=== PATIENT | female | born 1975 | race Two or more races ===

== ENCOUNTER 2017-02-04 21:22 | Emergency (ER) | payer SELFPAY ==
[2017-02-04] MEDS ORDERED: ASPIRIN 81 MG TABLET, CHEWABLE PO ONE (21:53)
[2017-02-04 22:15] LABS: ABSOLUTE EOSINOPHILS # (AUTO) 0.1 10^3/uL (0.0-0.6); ABSOLUTE LYMPHOCYTES (AUTO) 1.7 10^3/uL (0.5-4.7); ABSOLUTE MONOCYTES (AUTO) 0.5 10^3/uL (0.1-1.4); BASOPHILS % (AUTO) 0.5 % (0-2); EOSINOPHILS % (AUTO) 1.8 % (0-6); HEMATOCRIT 40.4 % (36.0-47.0); HEMOGLOBIN 13.9 g/dL (12.0-15.5); HGB HCT DIFFERENCE 1.3; LYMPHOCYTES % (AUTO) 27.1 % (13-45); MEAN CORPUSCULAR HEMOGLOBIN 30.1 pg (27.0-33.4); MEAN CORPUSCULAR HGB CONC 34.4 g/dL (32.0-36.0); MEAN CORPUSCULAR VOLUME 88 fl (80-97); MONOCYTES % (AUTO) 7.5 % (3-13); RED BLOOD COUNT 4.61 10^6/uL (3.72-5.28); SEGMENTED NEUTROPHILS % (AUTO) 63.1 % (42-78); WHITE BLOOD COUNT 6.3 10^3/uL (4.0-10.5)
[2017-02-04 22:24] LABS: PROTHROMBIN TIME 12.6 SEC (11.4-15.4)
[2017-02-04 22:36] LABS: ALANINE AMINOTRANSFERASE 44 U/L (9-52); ALBUMIN 4.1 g/dL (3.5-5.0); ALKALINE PHOSPHATASE 73 U/L (38-126); ANION GAP 12 (5-19); ASPARTATE AMINO TRANSFERASE 26 U/L (14-36); BILIRUBIN,TOTAL 0.6 mg/dL (0.2-1.3); BLOOD UREA NITROGEN 12 mg/dL (7-20); CALCIUM 9.7 mg/dL (8.4-10.2); CARBON DIOXIDE 23 mmol/L (22-30); CHLORIDE 107 mmol/L (98-107); CREATINE KINASE 71 U/L (30-135); CREATININE RESULT 0.65 mg/dL (0.52-1.25); GLUCOSE 167 mg/dL (75-110); POTASSIUM 3.4 mmol/L (3.6-5.0); SODIUM 141.9 mmol/L (137-145); TOTAL PROTEIN 7.1 g/dL (6.3-8.2)
--- NOTE | 2017-02-04 22:38 | ER Document Report ---
ED General <KERI MORENO - Last Filed: 02/05/17 00:41> - General Time seen by provider: 22:30 Mode of Arrival: Medic Information source: Patient, Relative - daughter (translated for patient who speaks Bulgarian) TRAVEL OUTSIDE OF THE [place] IN LAST 30 DAYS: No - HPI Onset: Other - see HPI note Associated symptoms: Chest pain, Chills, Diarrhea, Sweating <MARISSA JOYCE - Last Filed: 02/05/17 01:02> - General Chief Complaint: Chest Pain Stated Complaint: CHEST PAIN Notes: Patient is a 41 year old Bulgarian speaking female presenting to the emergency department for multiple complaints. Patient speaks Bulgarian but can understand Venezuelan; patient's daughter aids in translation for the patient. Patient was asked if she would like an telegraph lineman and states that she understands everything but just cannot speak Venezuelan that well; she feels comfortable using her daughter to translate. Patient has some chest pain with palpitations that she has had for the past 4 years. Patient states this time she felt like her heart was "shaking." Patient has not been evaluated for this by a laboratory mechanic helper. Patient also states that she has some left upper quadrant abdominal pain that starts after she eats and radiates around into her back. Patient states that she had an appendectomy 2 months ago and the flu 3 weeks before her appendectomy surgery. Patient states she also was told that she has a enlarged right kidney and that she possibly needs to have a cholecystectomy due to a possible gallstone obstruction. Patient has not had this done because of her recent appendectomy and the surgeon wants to give her time to heal before another surgery. Patient has had this left upper quadrant pain for the past 8 days. Patient saw her PCP on Tuesday for this pain and a CT scan was ordered; patient had this scan completed today at [facility]. Patient complains of having diarrhea since her appendectomy. Patient also got a UTI after her surgery. Patient does not complain of any current chest pain or palpitations at time of exam. Patient has a history of hypertension, diabetes mellitus, hypercholesterolemia, and GERD. Patient has no known allergies. (MARISSA JOYCE) - Related Data Allergies/Adverse Reactions: No Known Allergies Allergy (Verified 02/05/17 00:44) Past Medical History - General Information source: Patient, Relative - daughter (translates for patient who speaks Bulgarian) - Social History Smoking Status: Never Smoker Cigarette use (# per day): No Chew tobacco use (# tins/day): No Frequency of alcohol use: None Drug Abuse: None Lives with: Family, Spouse/Significant other Family History: None - Past Medical History Cardiac Medical History: Reports: Hx Hypercholesterolemia, Hx Hypertension Endocrine Medical History: Reports: Hx Diabetes Mellitus Type 2 GI Medical History: Reports: Hx Ulcer <MARISSA JOYCE - Last Filed: 02/05/17 01:02> Review of Systems - Review of Systems Constitutional: See HPI, Chills, Diaphoresis EENT: No symptoms reported Cardiovascular: See HPI, Chest pain, Palpitations Respiratory: No symptoms reported Gastrointestinal: See HPI, Abdominal pain, Diarrhea, Nausea, Poor appetite Genitourinary: No symptoms reported Female Genitourinary: No symptoms reported Musculoskeletal: No symptoms reported Skin: No symptoms reported Hematologic/Lymphatic: No symptoms reported Neurological/Psychological: No symptoms reported -: Yes All other systems reviewed and negative <MARISSA JOYCE - Last Filed: 02/05/17 01:02> Physical Exam - Vital signs Interpretation: Normal - General General appearance: Alert, Other - appears uncomfortable In distress: Mild - HEENT Head: Normocephalic, Atraumatic Eyes: Normal Pupils: PERRL Mucous membranes: Moist - Respiratory Respiratory status: No respiratory distress Chest status: Nontender Breath sounds: Normal Chest palpation: Normal - Cardiovascular Rhythm: Regular Heart sounds: Normal auscultation Murmur: No - Abdominal Inspection: Normal Distension: No distension Bowel sounds: Normal Tenderness: Nontender Organomegaly: No organomegaly - Back Back: Normal, Nontender - Extremities General upper extremity: Normal inspection, Normal ROM, Normal strength General lower extremity: Normal inspection, Normal ROM, Normal strength - Neurological Neuro grossly intact: Yes Cognition: Normal Orientation: AAOx4 [place] Coma Scale Eye Opening: Spontaneous Karly Coma Scale Verbal: Oriented [place] Coma Scale Motor: Obeys Commands [place] Coma Scale Total: 15 Speech: Normal - Psychological Associated symptoms: Normal affect, Normal mood - Skin Skin Temperature: Warm Skin Moisture: Dry <MARISSA JOYCE - Last Filed: 02/05/17 01:02> - Vital signs Vitals: Temp Resp 99.1 F 21 H 02/04/17 21:34 02/04/17 21:34 Course - Laboratory Result Diagrams: 02/04/17 22:05 02/04/17 22:05 <KERI MORENO - Last Filed: 02/05/17 00:41> - Laboratory Result Diagrams: 02/04/17 22:05 02/04/17 22:05 <MARISSA JOYCE - Last Filed: 02/05/17 01:02> - Re-evaluation Re-evalutation: 02/04/17 22:45 02/04/17 22:50 41 year-old female with diabetes, gastric reflux and h/o palpitatoins, presents complaining of left upper quadrant pain with intermittent chest pain palpitations. Patient reports on arrival in the ED the chest pain palpitations are resolved. She continues to have left upper quadrant abdominal pain and swelling. She had a CT abdomen and pelvis as an outpatient yesterday ordered by her primary physician but does not know the results. Patient does have gallbladder disease and was suppposed to have a cholecystectomy however she had an emergency appendectomy which put that off. The patient reports that since the appendectomy she's had problems with urinary tract infection, diarrhea and now this left upper quadrant abdominal pain. The chest pain palpitations have been intermittent and ongoing for the last 4 years. She says that they normally just go away and she's never had them evaluated. Tonight they did not go away right away so she called the rescue squad. The patient has not had vomiting. She does take Prevacid for her gastric reflux. She does report subjective fevers for the last week but only at night. On exam, patient alert and oriented no acute chest vitals are stable patient is afebrile nontoxic appearing. Patient 's exam is unremarkable. Plan will be to initiate abdominal pain workup. We also checked EKG/CXR for her recurrent palpitation symptoms. EKG unremarkable. 02/04/17 22:52 02/05/17 00:45 Patient's workup is unremarkable. She is afebrile and nontoxic appearing. She has an unremarkable abdominal exam. She is hemodynamically stable. She has multiple concerns and asked me if she has anemia aspect be why she is so fatigued all the time. Patient's presentation is been primarily for ongoing complaints. I have discussed all of these issues with the patient and her daughter with her in the room. She reportedly has had Holter testing before for the chest pain/palpitations. Her physician is aware of these intermittent symptoms. She cut out caffeine about 3 months ago to try to resolve the problem. Regarding the abdomen, her exam was unremarkable today and I did not feel that advanced imaging was warranted. She did have a CT yesterday and she will follow-up the primary physician regarding the results of that. I have encouraged her follow up with her PCP for these ongoing issues. The patient acknowledges understanding and agrees with the plan. 02/05/17 00:54 (KERI MORENO) - Vital Signs Vital signs: Temp Pulse Resp BP Pulse Ox 99.1 F 20 114/78 97 02/04/17 21:34 02/05/17 00:01 02/05/17 00:00 02/05/17 00:01 - Laboratory Laboratory results interpreted by me: 02/04/17 22:05 Potassium 3.4 L Glucose 167 H - EKG Interpretation by Me Additional EKG results interpreted by me: 02/04/17 22:49 Heart rate 95, sinus rhythm, normal axis, normal intervals, no ST elevations, as interpreted by me. Compared with EKG of 04/12/14, no significant change. ( KERI MORENO) Discharge <KERI MORENO - Last Filed: 02/05/17 00:41> <MARISSA JOYCE - Last Filed: 02/05/17 01:02> - Discharge Clinical Impression: Palpitations Abdominal pain Qualifiers: Abdominal location: left upper quadrant Qualified Code(s): R10.12 - Left upper quadrant pain Chest pain Qualifiers: Chest pain type: other chest pain Qualified Code(s): R07.89 - Other chest pain Condition: Stable Disposition: HOME, SELF-CARE Instructions: Chest Pain of Unclear Cause ([facility]), Abdominal Pain ([facility]), Reflux Disease (GERD) ([facility]), Palpitations (Irregular or Rapid Heartrate) ([facility]) Additional Instructions: It is important that you continue follow-up with your primary physician for your ongoing issues with palpitations and abdominal pain. Return for fever greater than 100.3, difficulty breathing, recurrent/persistent chest pain, vomiting so not to keep down fluids, worsening abdominal pain, or other concerning symptoms. Print Language: Eren Pabon Attestation: 02/05/17 00:44 I personally performed the services described in the documentation, reviewed and edited the documentation which was dictated to the scribe in my presence, and it accurately records my words and actions. (KERI MORENO) Scribe Documentation - Scribe Written by Scribe:: Marissa Joyce 02/04/17 23:30 acting as scribe for :: Conklin <MARISSA JOYCE - Last Filed: 02/05/17 01:02>
[2017-02-04 22:45] LABS: ADD ON TESTING BLD IN LAB ACKNOWLEDGE
[2017-02-04 22:55] LABS: CREATINE KINASE MB < 0.22 ng/mL (<4.55); TROPONIN I < 0.012 ng/mL
[2017-02-05] MEDS ORDERED: NORMAL SALINE 1000 ML 1,000 ML IV ONE (00:32)
[2017-02-05 01:06] VITALS: BP 111/76
--- NOTE | 2017-02-05 16:08 | EKG REPORT ---
SEVERITY:- BORDERLINE ECG - SINUS RHYTHM BORDERLINE T WAVE ABNORMALITIES : Confirmed by: Sosa Morales MD 05-Feb-2017 16:08:06
== END 2017-02-05 01:14 | disposition home or self-care (01) ==
LOC: ER 21:22
DX: R07.9 Chest pain, unspecified (principal); R00.2 Palpitations; R68.83 Chills (without fever); R61 Generalized hyperhidrosis; R53.83 Other fatigue; R19.7 Diarrhea, unspecified; K21.9 Gastro-esophageal reflux disease without esophagitis; K82.9 Disease of gallbladder, unspecified; R19.02 Left upper quadrant abdominal swelling, mass and lump; R10.12 Left upper quadrant pain; R11.0 Nausea; E11.9 Type 2 diabetes mellitus without complications; I10 Essential (primary) hypertension; Z90.49 Acquired absence of other specified parts of digestive tract; Z87.440 Personal history of urinary (tract) infections; Z79.899 Other long term (current) drug therapy
CPT/HCPCS: 93005; 99285; 36415; 82553; 82550; 83690; 85025; 85610; 80053; 84484; 71010; 93010; J7030

== ENCOUNTER 2017-03-23 08:22 | Day surgery (SDC) | payer SELFPAY ==
[~2017-03-23 08:22] MED LIST: DIPHENHYDRAMINE HCL 50 MG/ML VIAL ONE; EPINEPHRINE INJ 1 MG/10 ML DISP.SYRIN ONE; FLUMAZENIL INJ 0.5 MG/5 ML VIAL IV ONE; GLUCAGON,HUMAN RECOMB 1 MG INJ ONE; NALOXONE HCL INJ/PF 0.4 MG/1 ML SDV ONE; ONDANSETRON HCL INJ/PF 4 MG/2 ML SDV ONE
[2017-03-23] MEDS: MIDAZOLAM 2 MG/2 ML INJ ONE ×2 (08:50→08:54)
[2017-03-23] MEDS: FENTANYL CITRATE INJ/PF 100 MCG/2 ML AMPUL ONE ×2 (08:52→08:58)
--- NOTE | 2017-03-23 09:10 | Operative Report ---
Operative Report DATE OF SURGERY: 03/23/17 Operative Report: The risks benefits and alternatives of the procedure explained to the patient in detail and informed consent is obtained that GIF Olympus video scope was inserted into the patient's mouth and hypopharynx the esophagus is identified intubated and insufflated the scope was then advanced through the esophagus stomach and duodenum retroflexion maneuver is done the esophagus stomach and first and second portions of the duodenum examined PREOPERATIVE DIAGNOSIS: Gastroesophageal reflux disease. Hiatal hernia POSTOPERATIVE DIAGNOSIS: Gastritis, nodular status post biopsy rule out Helicobacter pylori OPERATION: EGD with biopsy SURGEON: ROSALIA CELAYA ANESTHESIA: Moderate Sedation - 4 mg of Versed, 100 g of fentanyl. Conscious sedation monitoring time 30 minutes. TISSUE REMOVED OR ALTERED: Gastric specimens obtained. COMPLICATIONS: None. ESTIMATED BLOOD LOSS: none. INTRAOPERATIVE FINDINGS: Nodular gastritis PROCEDURE: Patient tolerated the procedure well. No immediate postprocedure complications are noted. Patient discharged in good condition. Discharge date 03/23/2017. Discharge diet: Regular. Discharge activity: Regular. 2-3 week follow-up to discuss findings. Patient is instructed to call the office should there be any further problems or questions. We'll await on biopsies.
[2017-03-23 10:22] VITALS: BP 111/73
== END 2017-03-23 10:15 | disposition home or self-care (01) ==
LOC: END 08:22
PROVIDERS: ATTEND Internal Medicine Gastroenterology
PROC: 0DB68ZX Excision of Stomach, Via Natural or Artificial Opening Endoscopic, Diagnostic (ICD-10-PCS; principal; 2017-03-23 08:30)
DX: K21.9 Gastro-esophageal reflux disease without esophagitis (principal); K29.50 Unspecified chronic gastritis without bleeding; K44.9 Diaphragmatic hernia without obstruction or gangrene; E11.9 Type 2 diabetes mellitus without complications; E78.5 Hyperlipidemia, unspecified; E66.9 Obesity, unspecified; E55.9 Vitamin D deficiency, unspecified; K86.1 Other chronic pancreatitis; Z79.899 Other long term (current) drug therapy; Z79.1 Long term (current) use of non-steroidal anti-inflammatories (NSAID); Z79.84 Long term (current) use of oral hypoglycemic drugs; Z68.36 Body mass index [BMI] 36.0-36.9, adult
CPT/HCPCS: 43239; 82962; 88305 ×2; 88311; J2250; J3010; J0171; J1200; J1610; J2310; J2405; J3490

== ENCOUNTER 2017-05-02 00:15 | Inpatient (IN) | payer SELFPAY ==
[2017-05-02] MEDS ORDERED: ASPIRIN 81 MG TABLET, CHEWABLE PO ONE (00:21)
[2017-05-02 00:37] LABS: ABSOLUTE EOSINOPHILS # (AUTO) 0.1 10^3/uL (0.0-0.6); ABSOLUTE LYMPHOCYTES (AUTO) 1.4 10^3/uL (0.5-4.7); ABSOLUTE MONOCYTES (AUTO) 0.7 10^3/uL (0.1-1.4); ABSOLUTE NEUT (AUTO) 6.1 10^3/uL (1.7-8.2); BASOPHILS % (AUTO) 0.5 % (0-2); EOSINOPHILS % (AUTO) 1.3 % (0-6); HEMATOCRIT 40.3 % (36.0-47.0); HEMOGLOBIN 13.7 g/dL (12.0-15.5); HGB HCT DIFFERENCE 0.8; LYMPHOCYTES % (AUTO) 16.9 % (13-45); MEAN CORPUSCULAR HEMOGLOBIN 30.4 pg (27.0-33.4); MEAN CORPUSCULAR HGB CONC 33.9 g/dL (32.0-36.0); MEAN CORPUSCULAR VOLUME 90 fl (80-97); MONOCYTES % (AUTO) 7.8 % (3-13); RED BLOOD COUNT 4.49 10^6/uL (3.72-5.28); RED CELL DISTRIBUTION WIDTH 13.1 % (11.5-14.0); SEGMENTED NEUTROPHILS % (AUTO) 73.5 % (42-78); WHITE BLOOD COUNT 8.4 10^3/uL (4.0-10.5)
[2017-05-02 01:06] LABS: CREATINE KINASE MB 1.24 ng/mL (<4.55)
[2017-05-02] MEDS ORDERED: MORPHINE SULFATE 10 MG/ML INJ IV ONE (01:09)
[2017-05-02] MEDS ORDERED: NORMAL SALINE 1000 ML 1,000 ML IV ONE (01:10)
[2017-05-02] MEDS ORDERED: ONDANSETRON HCL INJ/PF 4 MG/2 ML SDV IV ONE (01:10)
[2017-05-02 01:11] LABS: ALANINE AMINOTRANSFERASE 29 U/L (9-52); ALBUMIN 4.1 g/dL (3.5-5.0); ALKALINE PHOSPHATASE 62 U/L (38-126); ANION GAP 12 (5-19); ASPARTATE AMINO TRANSFERASE 53 U/L (14-36); BILIRUBIN,DIRECT 0.3 mg/dL (0.0-0.4); BILIRUBIN,TOTAL 0.6 mg/dL (0.2-1.3); BLOOD UREA NITROGEN 13 mg/dL (7-20); CALCIUM 9.3 mg/dL (8.4-10.2); CARBON DIOXIDE 21 mmol/L (22-30); CHLORIDE 106 mmol/L (98-107); CREATINE KINASE 93 U/L (30-135); CREATININE RESULT 0.65 mg/dL (0.52-1.25); GLUCOSE 159 mg/dL (75-110); POTASSIUM 3.6 mmol/L (3.6-5.0); SODIUM 139.4 mmol/L (137-145); TOTAL PROTEIN 7.5 g/dL (6.3-8.2)
[2017-05-02 01:12] LABS: TROPONIN I < 0.012 ng/mL
--- NOTE | 2017-05-02 01:12 | ER Document Report ---
ED GI/ - General Chief Complaint: Abdominal Pain Stated Complaint: ABDOMINAL PAIN Time Seen by Provider: 05/02/17 01:03 Notes: Patient is a 41-year-old female who comes emergency department for chief complaint of abdominal pain, symptoms started 1 week ago, patient has had progressively worsening symptoms and now is having pain that radiates from the mid to right upper abdomen through to her back. Symptoms are worse with eating , she states afterwards she has increased pain and belching. She denies vomiting, had a normal bowel movement earlier today, she denies fever. She denies any alcohol use. She has had an appendectomy, past medical history of type 2 diabetes, hyperlipidemia, hypertension. TRAVEL OUTSIDE OF THE [place] IN LAST 30 DAYS: No - Related Data Allergies/Adverse Reactions: No Known Allergies Allergy (Verified 03/23/17 08:35) Past Medical History - General Information source: Patient - Social History Smoking Status: Never Smoker Frequency of alcohol use: None Drug Abuse: None Lives with: Family Family History: None - Past Medical History Cardiac Medical History: Reports: Hx Hypercholesterolemia, Hx Hypertension Denies: Hx Coronary Artery Disease, Hx Heart Attack Pulmonary Medical History: Reports: Hx Pneumonia - 10yrs ago Denies: Hx Asthma, Hx Bronchitis, Hx COPD Neurological Medical History: Denies: Hx Cerebrovascular Accident, Hx Seizures Endocrine Medical History: Reports: Hx Diabetes Mellitus Type 2 GI Medical History: Reports: Hx Ulcer Musculoskeltal Medical History: Reports Hx Arthritis Surgical Hx: Negative Past Surgical History: Denies: Hx Hysterectomy - Immunizations Hx Diphtheria, Pertussis, Tetanus Vaccination: No Hx Pneumococcal Vaccination: 08/21/13 Review of Systems - Review of Systems Constitutional: No symptoms reported EENT: No symptoms reported Cardiovascular: See HPI Respiratory: See HPI Gastrointestinal: See HPI Genitourinary: No symptoms reported Female Genitourinary: No symptoms reported Musculoskeletal: No symptoms reported Skin: No symptoms reported Hematologic/Lymphatic: No symptoms reported Neurological/Psychological: No symptoms reported Physical Exam - Vital signs Vitals: Pulse Ox 100 05/02/17 00:22 Interpretation: Normal - General General appearance: Alert, Anxious In distress: Mild - patient appears to be in pain but is not in severe distress - HEENT Head: Normocephalic, Atraumatic Eyes: Normal Pupils: PERRL - Respiratory Respiratory status: No respiratory distress Chest status: Nontender Breath sounds: Normal. No: Decreased air movement, Wheezing Chest palpation: Normal - Cardiovascular Rhythm: Regular. No: Tachycardia Heart sounds: Normal auscultation, S1 appreciated, S2 appreciated Murmur: No - Abdominal Inspection: Normal Distension: No distension Bowel sounds: Normal Tenderness: Tender, McBurney's point, Guarding - Back Back: Normal, Nontender. No: Tender, CVA tenderness - Extremities General upper extremity: Normal inspection, Nontender, Normal color, Normal ROM , Normal temperature General lower extremity: Normal inspection, Nontender, Normal color, Normal ROM , Normal temperature, Normal weight bearing. No: Lonny's sign - Neurological Neuro grossly intact: Yes Cognition: Normal Orientation: AAOx4 [place] Coma Scale Eye Opening: Spontaneous Karly Coma Scale Verbal: Oriented [place] Coma Scale Motor: Obeys Commands Karly Coma Scale Total: 15 Speech: Normal Motor strength normal: LUE, RUE, LLE, RLE Sensory: Normal - Psychological Associated symptoms: Anxious - Skin Skin Temperature: Warm Skin Moisture: Dry Skin Color: Normal Course - Re-evaluation Re-evalutation: Patient was guarding in the right upper quadrant and tenderness in the epigastric area, CBC normal, lipase normal, LFTs and bilirubin are normal, alk phos is normal. Patient was initially stating that she had chest pain although her pain is abdominal, as a result chest pain protocol had been initiated, unremarkable workup. Ultrasound showing cholelithiasis without evidence of cholecystitis. Patient had good relief with medication, however because of ongoing symptoms which are worsening and now inability to eat patient is very agreeable with having surgical evaluation and requests this specifically. Patient will be kept n.p.o. pending evaluation. 05/02/17 06:19 Spoke with Surgery transmissions systems operator, Dr. Murillo, he will evaluate the patient at bedside. 05/02/17 06:23 Dr. Murillo reports patient will be admitted for surgery, patient to be covered with Unasyn and kept NPO. - Vital Signs Vital signs: Temp Pulse Resp BP Pulse Ox 18 119/79 98 05/02/17 05:01 05/02/17 05:01 05/02/17 05:01 - Laboratory Result Diagrams: 05/02/17 00:25 05/02/17 00:25 Laboratory results interpreted by me: 05/02/17 00:25 Carbon Dioxide 21 L Glucose 159 H AST 53 H Discharge - Discharge Clinical Impression: Right upper quadrant abdominal pain Cholelithiasis Qualifiers: Cholelithiasis location: gallbladder Cholecystitis presence: without cholecystitis Biliary obstruction: without biliary obstruction Qualified Code(s) : K80.20 - Calculus of gallbladder without cholecystitis without obstruction Condition: Stable Disposition: ADMITTED INPATIENT Admitting Provider: Surgicalist Unit Admitted: Surgical Floor
--- NOTE | 2017-05-02 02:43 | RADIOLOGY REPORT (SQ) ---
EXAM DESCRIPTION: U/S ABDOMEN LIMITED W/O DOP COMPLETED DATE/TIME: 05/02/2017 2:19 am REASON FOR STUDY: RUQ and epigastric pain COMPARISON: None. TECHNIQUE: Dynamic and static grayscale images acquired of the abdomen and recorded on PACS. Additio nal selected color Doppler and spectral images recorded. LIMITATIONS: Bowel gas artifact and body habitus. FINDINGS: PANCREAS: Obscured. LIVER: No masses. Echotexture normal. LIVER VASCULATURE: Normal directional flow of the main portal vein and hepatic veins. GALLBLADDER: Several Gallstone(s). No pericholecystic fluid. No wall thickening. ULTRASOUND-DETECTED MACHADO'S SIGN: Negative. INTRAHEPATIC DUCTS AND COMMON DUCT: 0.5 cm. CBD and intrahepatic ducts normal caliber. No filling de fects. INFERIOR VENA CAVA: Normal flow. AORTA: No aneurysm. RIGHT KIDNEY: Normal size. Normal echogenicity. No solid or suspicious masses. No hydronephrosis. No calcifications. PERITONEAL AND RIGHT PLEURAL SPACE: No ascites or effusions. OTHER: No other significant findings. IMPRESSION: Cholelithiasis. TECHNICAL DOCUMENTATION: JOB ID: [id number] [employer]- All Rights Reserved
[2017-05-02] MEDS: NORMAL SALINE 1000 ML 1,000 ML IV PRN ×2 (05:05→17:10)
[2017-05-02] MEDS ORDERED: AMPICILLIN SOD/SULBACTAM 3 GM VIAL IV ONE (06:24)
--- NOTE | 2017-05-02 08:24 | HISTORY AND PHYSICAL E ---
History and Physical NAME: CARRIE GIRON : 1975 AGE: 41Y ADMITTED: 05/02/2017 ROOM: ED14 CHIEF COMPLAINT: Abdominal pains. HISTORY OF PRESENT ILLNESS: This is a 41-year-old female who has been complaining of abdominal pains following fatty meals for the past few months. She has been having more abdominal pains and nausea over the past 10 days and worse yesterday, and brought her to the Emergency Room. Ultrasound of the gallbladder revealed gallstones, but no pericholecystic fluid. She denies any vomiting. She had a normal bowel movement earlier today. Denies any fever. Denies any alcohol use. She had a laparoscopic appendectomy in November of this year. Part of her past history of type 2 diabetes, hyperlipidemia and hypertension. ALLERGIES: None known. PAST MEDICAL HISTORY: 1. Diabetes. 2. Hypertension. 3. Hyperlipidemia. 4. She was also diagnosed with H. pylori by Dr. Noble about a month ago and completed antibiotic therapy. SOCIAL HISTORY: Denies smoking and no drinking alcohol use. REVIEW OF SYSTEMS: As in HPI. Constitutional: No symptoms reported. ENT: No symptoms reported. Cardiovascular: Some pains radiating to the back, but no definite chest pains. No shortness of breath. Genitourinary: No dysuria. Female genitalia: No vaginal discharge. Musculoskeletal: No joint pains. Skin: No symptoms reported. Hematologic/lymphatic: No symptoms reported. Urological/Psychological: No symptoms reported. PHYSICAL EXAMINATION: GENERAL: This is a 41-year-old female, alert and oriented, complaining of right upper quadrant pains. HEENT: Neck is supple, without thyromegaly. LUNGS: Clear. HEART: Regular sinus rhythm. ABDOMEN: Soft with tenderness in the right upper quadrant. EXTREMITIES: No edema. IMPRESSION: Cholelithiasis with possible acute cholecystitis. PLAN: Keep NPO, possible laparoscopic cholecystectomy today. DICTATING PHYSICIAN: CASEY RAM M.D. [id number] PHY#: [id number] ID: [id number] JOB#: [id number] ACCT: [id number] cc:NO Jeff CANALES
--- NOTE | 2017-05-02 09:41 | EKG REPORT ---
SEVERITY:- NORMAL ECG - SINUS RHYTHM : Confirmed by: Pallavi French 02-May-2017 09:40:22
[2017-05-02] MEDS ORDERED: NEOSTIGMINE METHYLSULFATE 10 MG/10 ML VIAL ONE (09:49)
[2017-05-02] MEDS ORDERED: SUCCINYLCHOLINE CHLORIDE INJ 200 MG/10 ML VIAL ONE (09:49)
[2017-05-02] MEDS ORDERED: ONDANSETRON HCL INJ/PF 4 MG/2 ML SDV ONE ×3 (09:49→17:08)
[2017-05-02] MEDS ORDERED: LIDOCAINE 2% INJ-PF (20 MG/ML) 10 ML AMPUL ONE (09:49)
[2017-05-02] MEDS ORDERED: ROCURONIUM BROMIDE INJ 50 MG/5 ML VIAL IV ONE (09:49)
[2017-05-02] MEDS ORDERED: GLYCOPYRROLATE INJ 0.4 MG/2 ML VIAL ONE (09:49)
[2017-05-02] MEDS ORDERED: METOCLOPRAMIDE HCL INJ/PF 10 MG/2 ML SDV ONE (09:49)
[2017-05-02] MEDS ORDERED: FENTANYL CITRATE INJ/PF 250 MCG/5 ML AMPULE ONE ×2 (10:58)
[2017-05-02] MEDS ORDERED: ACETAMINOPHEN 100 ML IV ONE (10:59)
[2017-05-02] MEDS ORDERED: MORPHINE SULFATE 10 MG/ML INJ ONE (10:59)
[2017-05-02] MEDS ORDERED: MIDAZOLAM 2 MG/2 ML INJ ONE (10:59)
[2017-05-02] MEDS ORDERED: PROPOFOL INJ 200 MG/20 ML VIAL IV ONE (10:59)
[2017-05-02] MEDS ORDERED: BUPIVACAINE HCL 0.25 % INJ/PF (2.5 MG/1 ML) 30 ML VIAL ONE (11:32)
--- NOTE | 2017-05-02 12:34 | Operative Report ---
Operative Report DATE OF SURGERY: 05/02/17 PREOPERATIVE DIAGNOSIS: Acute cholecystitis cholelithiasis POSTOPERATIVE DIAGNOSIS: same OPERATION: Laparoscopic cholecystectomy SURGEON: PATRICK ROD ANESTHESIA: GA TISSUE REMOVED OR ALTERED: gall bladder with stones COMPLICATIONS: None ESTIMATED BLOOD LOSS: 45 cc INTRAOPERATIVE FINDINGS: See below PROCEDURE: Patient was brought in the preop holding area the main operating room and general anesthesia was induced. Arms abducted, abdomen exposed, prepped and draped in a sterile fashion. Surgical plan surgical timeout were conducted. The patient had previous laparoscopic appendectomy. A supraumbilical incision was made at the previous scar site with a 9 Veress needle inserted peritoneal cavity, pneumoperitoneum was established. The Veress needle was removed, and a 5 mm port was inserted into the peritoneal cavity and a 5 mm flexible scope was inserted. Under direct visualization 3 additional ports were placed one in the subxiphoid and 2 in the subcostal position. Findings were significant for adhesions between the gallbladder and the gastroduodenal region. These were taken down using a combination of blunt and electrocautery dissection. Grasper placed on the gallbladder fundus and infundibulum. The neck of the gallbladder its junction with the cystic duct was now dissected out. The cystic artery was not in its usual location, specifically it was more lateral and deep. The triangle of Calot was opened widely. We obtained the critical view, and photos were taken. Prior to addressing the cystic duct, however, we did place some clips on a branch point of the cystic artery and used cautery distally to free the undersurface of the gallbladder from these vessels. We now the gallbladder suspended from the cystic duct and the fundus. The cystic duct was now clipped twice proximally once distally and then divided with scissors after photographing the target tissue. The gallbladder was removed from the liver bed using hook cautery dissection. Specimen was out of the patient the supraumbilical port site incision with some stretching of the fascia without spillage of stones. The specimen was sent to pathology for permanent analysis We returned the peritoneal cavity, with excellent exposure of the after mentioned clips, we interrogated an area of bleeding coming from the cystic artery which had been previously clipped at several locations as it abutted the undersurface of the liver. We had excellent visualization and we were able to gently use a little cautery applied via hook to control this onerous bleeding. Placed 2 strips of Surgicel in the area and at this point felt the mechanical bleeding was completely controlled. We checked the viscera and they were in good condition. We felt the operation was complete. Sponge and needle counts correct. All ports removed under direct visualization, pneumoperitoneum evacuated, wounds closed with 3 oh, 0, benzoin Steri-Strips patient tolerated procedure well, extubated, taken recovery in stable condition.
[2017-05-02] MEDS ORDERED: ONDANSETRON HCL INJ/PF 4 MG/2 ML SDV IV PRN (16:55)
[2017-05-02] MEDS: OXYCODONE-ACETAMINOPHEN 5-325 MG TABLET PO PRN (20:37)
[2017-05-03] MEDS: OXYCODONE-ACETAMINOPHEN 5-325 MG TABLET PO PRN ×2 (02:06→07:33)
--- NOTE | 2017-05-03 08:03 | DISCHARGE SUMMARY E ---
Discharge Summary NAME: CARRIE MILAN : 1975 AGE: 41Y ADMITTED: 05/02/2017 DISCHARGED: 05/03/2017 FINAL DIAGNOSES: 1. Cholelithiasis. 2. Acute cholecystitis. PROCEDURE DONE: On 05/02/2017, laparoscopic cholecystectomy, surgeon Dr. Leblanc. SUMMARY: This is a 41-year-old female complaining of right upper quadrant pains of a few days' duration. She was noted to have gallstones and evidence of acute cholecystitis on ultrasound. She then underwent laparoscopic cholecystectomy on 05/02/[address] Leblanc. On 05/03/2017, she is doing very well and discharged improved on the same day. Prescription for Percocet was given to take 1 every 6 hours as needed for pain. She can have regular diet and avoid heavy lifting for more than 15 pounds for the next week, then gradually resume regular activity. A note was given for her to go back to work in about 2 weeks on 05/17/2017. She will be seen in the Surgical [facility] next week. DICTATING PHYSICIAN: CASEY RAM M.D. [id number] PHY#: [id number] ID: [id number] JOB#: [id number] ACCT: [id number] cc:Ulises FRYE PA >
[2017-05-03 08:31] VITALS: BP 128/79
== END 2017-05-03 09:17 | disposition home or self-care (01) | DRG 419 ==
LOC: ER 00:15 → EH 06:32 → UNDOADMIN 06:32 → EH 09:10 → 4S 13:57
PROVIDERS: ADMIT Surgery; ATTEND Surgery
PROC: 0FT44ZZ Resection of Gallbladder, Percutaneous Endoscopic Approach (ICD-10-PCS; principal; 2017-05-02 09:45)
DX: K80.12 Calculus of gallbladder with acute and chronic cholecystitis without obstruction (principal); E11.9 Type 2 diabetes mellitus without complications; E78.5 Hyperlipidemia, unspecified; I10 Essential (primary) hypertension; M19.90 Unspecified osteoarthritis, unspecified site; Z90.710 Acquired absence of both cervix and uterus
CPT/HCPCS: 36415; 76705; 790; 80053; 82550; 82553; 83690; 84484; 84703; 85025; 88304; 93005; 93010; 96361; 96374; 96375; 99285; J0131; J0295; J0330; J2250; J2270; J2405; J2704; J2765; J3010; J3490; J7030

== ENCOUNTER 2020-02-17 19:58 | Emergency (ER) | payer SELFPAY ==
--- NOTE | 2020-02-17 20:15 | ER Document Report ---
ED Medical Screen (RME) - General Chief Complaint: Vaginal Bleeding Stated Complaint: VAGINAL BLEEDING/10W4D PREG Time Seen by Provider: 02/17/20 20:11 Mode of Arrival: Ambulatory Information source: Patient Notes: Patient presents with vaginal bleeding that started today with lower pelvic pain. Patient also reports low back pain. Patient complains of urinary frequency with occasional dysuria. Patient is currently 9 weeks 4 days G8, P7. Patient's blood type is O+ after review of previous delivery here at [facility]. I have greeted and performed a rapid initial assessment of this patient. A comprehensive ED assessment and evaluation of the patient, analysis of test results and completion of the medical decision making process will be conducted by additional ED providers. TRAVEL OUTSIDE OF THE [place] IN LAST 30 DAYS: No - Related Data Allergies/Adverse Reactions: No Known Allergies Allergy (Verified 05/02/17 08:30) Past Medical History - General Last Menstrual Period: 12/05/2019 - Social History Chew tobacco use (# tins/day): No Frequency of alcohol use: None Drug Abuse: None - Past Medical History Cardiac Medical History: Reports: Hx Hypercholesterolemia, Hx Hypertension Denies: Hx Coronary Artery Disease, Hx Heart Attack Pulmonary Medical History: Reports: Hx Pneumonia - 10yrs ago Denies: Hx Asthma, Hx Bronchitis, Hx COPD Neurological Medical History: Denies: Hx Cerebrovascular Accident, Hx Seizures Endocrine Medical History: Reports: Hx Diabetes Mellitus Type 2 GI Medical History: Reports: Hx Ulcer Musculoskeltal Medical History: Reports Hx Arthritis Past Surgical History: Denies: Hx Hysterectomy - Immunizations Hx Diphtheria, Pertussis, Tetanus Vaccination: No Physical Exam - Vital signs Vitals: Temp Pulse Resp BP Pulse Ox 97.8 F 73 20 156/84 H 100 02/17/20 20:04 02/17/20 20:04 02/17/20 20:04 02/17/20 20:04 02/17/20 20:04 - General General appearance: Appears well, Alert In distress: None - Abdominal Tenderness: Tender - Lower pelvic Course - Vital Signs Vital signs: Temp Pulse Resp BP Pulse Ox 97.8 F 73 20 156/84 H 100 02/17/20 20:04 02/17/20 20:04 02/17/20 20:04 02/17/20 20:04 02/17/20 20:04
[2020-02-17 21:13] LABS: ABSOLUTE EOSINOPHILS # (AUTO) 0.1 10^3/uL (0.0-0.6); ABSOLUTE LYMPHOCYTES (AUTO) 1.9 10^3/uL (0.5-4.7); ABSOLUTE MONOCYTES (AUTO) 0.4 10^3/uL (0.1-1.4); ABSOLUTE NEUT (AUTO) 4.2 10^3/uL (1.7-8.2); BASOPHILS % (AUTO) 0.3 % (0-2); EOSINOPHILS % (AUTO) 1.3 % (0-6); HEMATOCRIT 41.1 % (36.0-47.0); HEMOGLOBIN 14.4 g/dL (12.0-15.5); LYMPHOCYTES % (AUTO) 29.3 % (13-45); MEAN CORPUSCULAR HGB CONC 35.1 g/dL (32.0-36.0); MEAN CORPUSCULAR VOLUME 89 fl (80-97); PLATELET COUNT 250 10^3/uL (150-450); RED BLOOD COUNT 4.65 10^6/uL (3.72-5.28); RED CELL DISTRIBUTION WIDTH 13.1 % (11.5-14.0); SEGMENTED NEUTROPHILS % (AUTO) 63.1 % (42-78); TOTAL CELLS COUNTED % (AUTO) 100 %; WHITE BLOOD COUNT 6.6 10^3/uL (4.0-10.5)
[2020-02-17 21:49] LABS: APPEARANCE,URINE CLEAR; BILIRUBIN,URINE NEGATIVE (NEGATIVE); COLOR,URINE YELLOW; GLUCOSE, URINE 50 mg/dL (NEGATIVE); KETONES,URINE NEGATIVE (NEGATIVE); LEUKOCYTE ESTERASE,URINE NEGATIVE (NEGATIVE); NITRITE,URINE NEGATIVE (NEGATIVE); PROTEIN,URINE NEGATIVE (NEGATIVE); URINE SPECIFIC GRAVITY 1.011
--- NOTE | 2020-02-17 22:03 | ER Document Report ---
ED General - General Chief Complaint: Vaginal Bleeding Stated Complaint: VAGINAL BLEEDING/10W4D PREG Time Seen by Provider: 02/17/20 20:11 Mode of Arrival: Ambulatory TRAVEL OUTSIDE OF THE [place] IN LAST 30 DAYS: No - HPI Notes: Patient is a 44-year-old female who presents to the emergency department for evaluation. She is a G8, P7 approximately 10 weeks gestation who presents for increased abdominal pain as well as scant vaginal bleeding. She states she noticed it was pink at the end of her urination. She has had some urinary frequency but denies any dysuria. She has had some mild vaginal discharge, but states this been clear. She is followed by OB here as well as in [place] because she is high risk. She has been taking her medications as prescribed. - Related Data Allergies/Adverse Reactions: No Known Allergies Allergy (Verified 05/02/17 08:30) Home Medications: NovoLog, methyldopa Past Medical History - General Information source: Patient Last Menstrual Period: 12/05/2019 - Social History Smoking Status: Never Smoker Chew tobacco use (# tins/day): No Frequency of alcohol use: None Drug Abuse: None Family History: None Patient has suicidal ideation: No Patient has homicidal ideation: No - Past Medical History Cardiac Medical History: Reports: Hx Hypercholesterolemia, Hx Hypertension Denies: Hx Coronary Artery Disease, Hx Heart Attack Pulmonary Medical History: Reports: Hx Pneumonia - 10yrs ago Denies: Hx Asthma, Hx Bronchitis, Hx COPD Neurological Medical History: Denies: Hx Cerebrovascular Accident, Hx Seizures Endocrine Medical History: Reports: Hx Diabetes Mellitus Type 2 GI Medical History: Reports: Hx Ulcer Musculoskeletal Medical History: Reports Hx Arthritis Past Surgical History: Denies: Hx Hysterectomy - Immunizations Hx Diphtheria, Pertussis, Tetanus Vaccination: No Hx Pneumococcal Vaccination: 08/21/13 Review of Systems - Review of Systems Female Genitourinary: See HPI -: Yes All other systems reviewed and negative Physical Exam - Vital signs Vitals: Temp Pulse Resp BP Pulse Ox 97.8 F 73 20 156/84 H 100 02/17/20 20:04 02/17/20 20:04 02/17/20 20:04 02/17/20 20:04 02/17/20 20:04 - Notes Notes: This is a very pleasant 44-year-old female who appears her stated age in no acute distress. Vital signs reviewed, please refer to chart. Head is normocephalic, atraumatic. Pupils equal round, reactive to light. Neck is supple without meningismus. Heart is regular rate and rhythm. Lungs are clear to auscultation bilaterally. Abdomen is obese, nontender, normoactive bowel sounds throughout. Extremities without cyanosis, clubbing. Posterior calves are nontender. Peripheral pulses are equal. Skin is warm and dry. Patient is awake, alert, neurological exam is nonfocal. Course - Re-evaluation Re-evalutation: 02/17/20 22:02 Patient presents to the emergency department for evaluation. Laboratory investigations were ordered as through triage. Awaiting quantitative beta before ultrasound could be performed. Patient is stable, has no questions or concerns at this time. We will continue to monitor. 02/17/20 23:31 Laboratory investigations are largely unremarkable. Patient's ultrasound revealed a single IUP with appropriate measuring and heart rates. Patient did have some mild discharge, but she in fact had a pelvic exam performed by OB 6 days ago. I explained to her that urine gonorrhea and chlamydia are pending, she is comfortable with waiting for results after discharge. I am not inclined to treat this patient who is in a monogamous relationship with her , and she is in agreement with this plan. Otherwise she is to follow-up with OB this week, return to the emergency department with worsening or new concerning symptoms of any sort. - Vital Signs Vital signs: Temp Pulse Resp BP Pulse Ox 97.8 F 73 20 156/84 H 100 02/17/20 20:04 02/17/20 20:04 02/17/20 20:04 02/17/20 20:04 02/17/20 20:04 - Laboratory Result Diagrams: 02/17/20 20:40 Laboratory results interpreted by me: 02/17/20 02/17/20 20:40 20:40 Beta HCG, Quant 04536.00 H Urine Glucose (UA) 50 H Urine Urobilinogen 4.0 H - Diagnostic Test Radiology reviewed: Image reviewed, Reports reviewed Radiology results interpreted by me: 02/17/20 23:31 Obstetrics Ultrasound 02/17/20 20:13 IMPRESSION: Single live IUP of 9 weeks 4 days. Discharge - Discharge Clinical Impression: Vaginal bleeding affecting early Condition: Stable Disposition: HOME, SELF-CARE Instructions: Bleeding During Early ([facility]) Additional Instructions: No clear cause was found for your bleeding today. Please follow-up with your OB this week. Return to the emergency department with worsening or new concerning symptoms of any sort.
--- NOTE | 2020-02-17 23:08 | RADIOLOGY REPORT (SQ) ---
US PELVIS EXAM DATE: 02/17/2020 8:13 PM CDT HISTORY: Pelvic pain. Vaginal bleeding. COMPARISON: None. TECHNIQUE: Grayscale, color Doppler, and spectral Doppler ultrasound images of the pelvis were obtained. FINDINGS: The uterus is anteverted and measures 10.6 x 6.3 x 7.3 cm. There is an intrauterine gestational sac and a yolk sac with a pole, with a crown-rump length of 2.74 cm corresponding to 9 weeks 4 days. The heart rate is 163 bpm. The cervix is 3.2 cm and is closed. Ovaries are not seen. IMPRESSION: Single live IUP of 9 weeks 4 days.
[2020-02-17 23:10] LABS: CHLAM PCR NOT DETECTED (NOT DETECT)
[2020-02-17 23:52] VITALS: BP 134/80
== END 2020-02-17 23:52 | disposition home or self-care (01) ==
LOC: ER 19:58
DX: O20.9 Hemorrhage in early pregnancy, unspecified (principal); R10.9 Unspecified abdominal pain; R35.0 Frequency of micturition; N89.8 Other specified noninflammatory disorders of vagina; O26.891 Other specified pregnancy related conditions, first trimester; O24.111 Pre-existing type 2 diabetes mellitus, in pregnancy, first trimester; E11.9 Type 2 diabetes mellitus without complications; O16.1 Unspecified maternal hypertension, first trimester; Z3A.09 9 weeks gestation of pregnancy; Z79.4 Long term (current) use of insulin; Z79.899 Other long term (current) drug therapy
CPT/HCPCS: 36415; 76817; 81001; 84702; 85025; 87491; 87591; 99284